=== PATIENT | male | born 1990 | race African-American/Black ===

== ENCOUNTER 2021-03-07 10:00 | Outpatient (CLI) | payer OTHER ==
--- NOTE | 2021-03-07 15:32 | MRI Report ---
PROCEDURE: Hip LT W/O INDICATIONS: LT ANTERIOR GROIN/HIP PAIN TECHNIQUE: Noncontrast coronal T1 spin echo and STIR through the bony pelvis. Coronal and axial T2 fast spin ec ho with fat saturation, sagittal T1 spin echo, and oblique axial T2 fast spin echo with fat saturatio n through the hip. COMPARISON: None. FINDINGS: Image quality: Excellent. Bones and joints: Bone marrow of the pelvic ring and proximal femurs show normal signal throughout. Prominence of left femoral head neck junction superiorly is seen, which can be seen associated with c am-type femoral acetabular impingement. No intraosseous lesions or fractures. No avascular necrosis of the femoral heads. The visualized lower lumbar spine appears normally aligned. Tendons: Mild distal left gluteus medius and minimus tendinosis is seen at their insertion on greater trochanter. The iliopsoas tendon appears intact, without adjacent bursal fluid collections. The or igin of the hamstring tendon is intact at the ischial tuberosity. Labrum and cartilage: Subtle signal abnormality involving superior anterior left hip labrum is seen, which may represent very subtle focal labral tear. The alpha angle of the femur is within normal limi ts at less than 55 degrees. Soft tissues: Visualized muscles demonstrate normal bulk and internal signal. The proximal sciatic neurovascular bundle appears normal adjacent to the hamstring tendons. No free pelvic fluid. Bladde r wall thickness is normal. Genitourinary structures and bowel loops appear normal where visualized. IMPRESSION: 1. Slight prominence of left superior femoral head neck junction which can be seen associated with ca m-type femoral acetabular impingement. No marrow edema. No fracture or dislocation. No evidence of av ascular necrosis of femoral head. 2. Mild distal left gluteus medius and minimus tendinosis. No other muscle or tendon signal abnormali ty. 3. Finding is concerning for very subtle superior anterior left hip labral tear. Reviewed by: Jose Alberto Mendoza MD on 03/07/2021 3:31 PM PST Approved by: Jose Alberto Mendoza MD on 03/07/2021 3:31 PM PST Station ID: [id number]
== END 2021-03-07 10:01 | disposition home or self-care (01) ==
LOC: DI 10:00
DX: R10.31 Right lower quadrant pain (principal); R93.6 Abnormal findings on diagnostic imaging of limbs

== ENCOUNTER 2021-04-03 09:10 | Outpatient (CLI) | payer OTHER ==
--- NOTE | 2021-04-03 11:34 | XRAY Report ---
PROCEDURE: Arthrogram Needle Placement INDICATIONS: PAIN IN LEFT HIP CONTRAST: CONTRAST: conray, gadavi FLUOROSCOPY TIME: FLUORO TIME: 0.3 and NUMBER IMAGES: 3 TECHNIQUE: The indications, alternatives, benefits, risks, and complications of the procedure were explained to the patient. Written informed consent was obtained and placed in the chart. The hip was examined fl uoroscopically with the legs fixed in slight internal rotation, and a site for needle placement chose n for entry into the hip joint from an anterior approach. Care was taken to locate the common femora l artery and vein beforehand. The skin was prepped and draped in the usual fashion, and 1% Lidocaine infiltrated from skin down to joint capsule. A spinal needle was inserted into the joint, and a sma ll amount of iodinated contrast media injected to confirm intra-articular placement of the needle tip . This was followed by approximately 10 mL dilute solution of a gadolinium containing MR contrast ag ent. The needle was removed and a dressing was applied. The patient was given postprocedural instructions and sent to the MR suite for imaging. FINDINGS: A single fluoroscopic spot image demonstrates intra-articular location of injected iodinated contrast . IMPRESSION: Successful fluoroscopically guided administration of dilute Gadolinium solution into the hip joint fo r MR arthrogram. Reviewed by: Sina Xiao MD on 04/03/2021 11:33 AM PST Approved by: Sina Xiao MD on 04/03/2021 11:33 AM PST Station ID: [id number]
--- NOTE | 2021-04-03 11:56 | MRI Report ---
PROCEDURE: Arthrogram Hip LT INDICATIONS: PAIN IN LEFT HIP CONTRAST: Gadavist TECHNIQUE: After the administration of 10 mL of dilute intra-articular Gadolinium contrast, coronal STIR of the bony pelvis; coronal and oblique axial T1 spin echo with fat saturation, axial T2 fast spin echo with fat saturation, sagittal T1 spin echo with and without fat saturation of the involved hip. COMPARISON: March 07, 2021 Findings: MUSCULATURE: No edema in the musculature of the imaged hip region. LABRUM: Tear of the anterior labrum (i.E. 1001-13), extending inferiorly. HAMSTRING ATTACHMENT: No significant abnormality. BONES/JOINTS: No fractures or dislocations are identified. No evidence of irregularity or fragmentat ion of the femoral heads to suggest avascular necrosis. Redemonstrated bony protuberance at the femor al head/neck junction. The bone marrow signal intensity is normal for the patient's age. PELVIC STRUCTURES: The lower pelvic intraperitoneal structures are unremarkable. Impression: 1.Anterior labral tear, which extends inferiorly. Reviewed by: Pedro Miguel MD on 04/03/2021 11:55 AM PST Approved by: Pedro Miguel MD on 04/03/2021 11:55 AM PST Station ID: [id number]
== END 2021-04-03 09:11 | disposition home or self-care (01) ==
LOC: DI 09:10
DX: S73.192A Other sprain of left hip, initial encounter (principal)
CPT/HCPCS: 27093; 73722; 77002; A9585; Q9961

== ENCOUNTER 2021-04-18 05:03 | Emergency (ER) | payer OTHER ==
--- NOTE | 2021-04-18 05:37 | ED Physician Documentation ---
History of Present Illness - Stated complaint Stated Complaint: COLD SYMPTOMS - Chief complaint Chief Complaint: General - History obtained from History obtained from: Patient - Additonal information Additional information: 31yM, previously healthy p/w congestion, rhinorrhea, sore throat X 1-2 days and request for covid test. covid vaccinated. +sick contacts (kids). denies soa, cp, n/v/d, fever. Review of Systems Ten Systems: 10 systems reviewed and negative Nose: reports: Rhinorrhea / runny nose, Congestion Throat: reports: Sore throat PD PAST MEDICAL HISTORY - Past Medical History Past Medical History: No Musculoskeletal: Chronic back pain, Other Other Past Medical History: hip and LBP - Past Surgical History Past Surgical History: No - Present Medications Home Medications: Ambulatory Orders Medication Instructions Recorded Confirmed No Known Home Medications 04/18/21 04/18/21 - Allergies Allergies/Adverse Reactions: Allergies Allergy/AdvReac Type Severity Reaction Status Date / Time No Known Drug Allergies Allergy Verified 04/18/21 05:18 - Social History Does the pt smoke?: No Smoking Status: Never smoker Does the pt drink ETOH?: No Does the pt have substance abuse?: No - Immunizations Immunizations are current?: Yes PD ED PE NORMAL - Vitals Vital signs reviewed: Yes - General General: Alert and oriented X 3, No acute distress, Well developed/nourished - HEENT HEENT: Atraumatic, PERRL, EOMI, Moist mucous membranes, Pharynx benign - Neck Neck: Supple, no meningeal sign - Cardiac Cardiac: RRR - Respiratory Respiratory: No respiratory distress, Clear bilaterally - Abdomen Abdomen: Non tender, Non distended - Derm Derm: Normal color, Warm and dry - Extremities Extremities: No deformity - Neuro Neuro: Alert and oriented X 3, No motor deficit, No sensory deficit - Psych Psych: Normal mood, Normal affect Results - Vitals Vitals: Vital Signs - 24 hr 04/18/21 04/18/21 05:18 05:44 Temperature 36.3 C L 36.3 C L Heart Rate 67 67 Respiratory 17 16 Rate Blood Pressure 127/89 H 127/79 O2 Saturation 100 99 Oxygen O2 Source Room air PD MEDICAL DECISION MAKING - ED course ED course: 31yM p/w mild viral URI symptoms and request for covid test. symptomatic care di scussed. return precautions given. [place] advised to stay home and quarantine while symptomatic. Departure - Departure Disposition: 01 Home, Self Care Clinical Impression: Viral URI Condition: Good Instructions: ED Viral Syndrome Comments: You were seen for a viral upper respiratory infection. A covid test was sent and will result by morning time. [place] and return to the ED if he has any new or worsening symptoms or you have other concerns. Discharge Date/Time: 04/18/21 05:44
[2021-04-18 05:45] VITALS: BP 127/79
[2021-04-18 07:06] LABS: CORONAVIRUS 229E-RESP PCR NOT DETECTED; CORONAVIRUS HKU1-RESP PCR NOT DETECTED; CORONAVIRUS NL63-RESP PCR NOT DETECTED; CORONAVIRUS OC43-RESP PCR NOT DETECTED
[2021-04-18 07:07] LABS: B. PARAPERTUSSIS- RESP PCR PAN NOT DETECTED; B. PERTUSSIS- RESP PCR PANEL NOT DETECTED; C. PNEUMONIAE- RESP PCR PANEL NOT DETECTED; HUMAN METAPNEUMOVIRUS NOT DETECTED; INFLUENZA A- RESP PCR PANEL NOT DETECTED; INFLUENZA B - RESP PCR PANEL NOT DETECTED; M. PNEUMONIAE- RESP PCR PANEL NOT DETECTED; PARAINFLUENZA VIRUS 1 NOT DETECTED; PARAINFLUENZA VIRUS 2 NOT DETECTED; PARAINFLUENZA VIRUS 3 NOT DETECTED; PARAINFLUENZA VIRUS 4 NOT DETECTED; RHINOVIRUS/ENTEROVIRUS NOT DETECTED; RSV- RESP PCR PANEL NOT DETECTED; SARS-CoV-2 -RESP PCR PANEL DETECTED
== END 2021-04-18 05:44 | disposition home or self-care (01) ==
LOC: ED 05:03
DX: U07.1 COVID-19 (principal); J06.9 Acute upper respiratory infection, unspecified
CPT/HCPCS: 0202U; 99281; 99283

== ENCOUNTER 2021-08-29 15:33 | Outpatient (CLI) | payer OTHER ==
--- NOTE | 2021-08-29 15:58 | SLEEP CARE CONSULTATION ---
Information from patient questionnaire entered by Talita Israel MA. I have reviewed and concur with the information entered by Talita Israel MA. This document represents the service I personally performed and the decisions made by , Cherise Jain ARNP. History of Present Illness Service Date and Time: 08/29/2021 1520 Reason for Visit: New patient Chief Complaint: reports: Insomnia, Unrefreshed sleep, Snoring, Excessive daytime sleepiness, Observed pauses in breathing, Frequent awakenings at night, Other (dry throat, especially at night; choking, gasping for air) Date of Onset: 6-9 months Usual bedtime: 10 PM to 5 AM; depends on work and schoolwork Time it takes to fall asleep: 45 minutes to 2 hours Snores at night: Yes Observed to quit breathing while asleep: Yes Sleeps alone due to snoring: Yes Number of times waking at night: 3-5 times Reasons for waking at night: reports: Choking, Snoring, Gasping for air, Pain, Bathroom, Other (unknown reason) Toss, Turn, or Twitch while sleeping: Yes Recalls having dreams: Yes (sometimes, barely) Usually gets out of bed at: 4-6 AM; Feels refreshed in the morning: No Morning headache: Yes (sometimes (1-2 times a week), resolves after shower) Sleepy or fatigued during the day: Yes Ever fallen asleep while driving: No (but do feel sleepy at times) Takes day naps: Yes (2 x a week, 2 hrs but usually not because it is interrupted) Dreams during day naps: No Prior sleep studies: No Additional HPI information: I had the pleasure of seeing BRITTANY TITUS today regarding the possibility of him having a sleep disorder. His current complaints are excessive daytime sleepiness, snoring very loud, observed pauses in breathing, insomnia and unrefreshed sleep. He has been told that he snores very loudly. He will wake up gasping for air at night and drinks water for his very dry throat at night. He states he wake up frequently during the night from the gasping or choking but he is able to go back to sleep. 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 Patient is and lives in [place]. Have you smoked in the past 12 months: No Alcohol use: Yes Alcohol amount and frequency: 1 drink about 1 time a month Caffeine use: Yes Caffeine amount and frequency: 2 x a week Family History Family history of sleep disordered breathing: No Family Hx Sleep Apnea: Mother: Snoring (not sure), Father: Snoring Allergies and Home Medications Drug allergies reviewed: Yes (NKDA) Home medication list reviewed: Yes Allergy and home medication list: Allergies No Known Drug Allergies Allergy (Verified 04/18/21 05:18) Medications: Ibuprofen HCTZ for hypertension, will start after does sleep study Review of Systems Weight gain over past 5 years: 11 lbs Cardiovascular: reports: high blood pressure Gastrointestinal: reports: heartburn Urinary: reports: incontinence Neurological: denies: head trauma Ear/Nose/Throat: reports: dry mouth/throat Endocrine: reports: excessive thirst, increased urination Musculoskeletal: reports: back pain Physical Exam Vital signs obtained and entered by: BROOK FRASER Blood Pressure: 120/79 (RESP 16, PULSE 82, RIGHT) Cuff size: wrist Heart Rate: 83 O2 Saturation: 99 (PAPER MASK) Height: 5 ft 8 in Weight: 167 lb (UNIFORM AND BOOTS) Body Mass Index: 25.4 BMI Classification: Overweight Neck circumference: 14 (INCHES) Mouth and throat: narrow oropharynx Soft palate: long Hard palate: normal Uvula: normal Uvula visualization: 0% Mallampati Class IV Tongue: enlarged in size with teeth haney on lateral edges Tonsils: small Neck: normal w/o lymphadenopathy or thyromegaly Heart: regular rate and rhythm Lungs: clear bilaterally Impression and Plan 1. Suspected Obstructive Sleep Apnea-Hypopnea Syndrome, as suggested by a history of loud and irregular snoring, observed cessation of breath while asleep, gasping or choking in sleep, morning headache, frequent awakening during the night, unrefreshed sleep, and excessive daytime sleepiness. Narrow oropharynx and obesity are common predisposing factors for obstructive sleep apnea-hypopnea syndrome. I recommend proceeding to polysomnography to confirm the diagnosis and to assess severity. If the patient has significant sleep disordered breathing, a manual CPAP titration study will also be performed to find the optimal treatment pressure. I informed the patient of what the sleep studies involve and after some discussion, obtained agreement to proceed. The pathophysiology of obstructive sleep apnea-hypopnea syndrome was discussed with the patient and health risks of cardiovascular and cerebrovascular disease if not treated. 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 Patient agreed to plan. * Schedule polysomnography * Avoid long distance driving or driving when feeling sleepy. * Avoid alcohol, sedative and muscle relaxant around bedtime. * Attempt to lose weight. * Review instructions provided by trained office staff on how to prepare for the sleep study. * Return for follow-up after sleep study completed. Counseling Topics: Weight loss health impact Visit Type: In Office Time Spent with Patient (minutes): 34 Provider Statement: I spent 100% of the Face to Face Visit with the patient with greater than 50% spent counseling the patient and coordination of care.
[2021-08-29 15:59] VITALS: BP 120/79
== END 2021-08-29 15:34 | disposition home or self-care (01) ==
LOC: SC 15:33
PROVIDERS: ATTEND Nurse Practitioner Family
DX: R06.83 Snoring (principal); R06.81 Apnea, not elsewhere classified; G47.8 Other sleep disorders; R51.9 Headache, unspecified; G47.10 Hypersomnia, unspecified; E66.3 Overweight; Z68.25 Body mass index [BMI] 25.0-25.9, adult
CPT/HCPCS: 99203; 99212

== ENCOUNTER 2021-09-20 09:58 | Outpatient (CLI) | payer OTHER ==
[2021-09-20 10:42] VITALS: BP 122/75
--- NOTE | 2021-09-20 10:42 | SLEEP CARE CONSULTATION ---
Information from patient questionnaire entered by Talita Israel MA. I have reviewed and concur with the information entered by Talita Israel MA. This document represents the service I personally performed and the decisions made by , Cherise Jain ARNP. History of Present Illness Service Date and Time: 09/20/2021 0958 Initial [place] Sleepiness Scale score: 3 (08/2021) Current [place] Sleepiness Scale score: 9 () Additional HPI information: BRITTANY TITUS returns for follow up and results of the recently performed polysomnography. I explained the pathophysiology behind obstructive sleep apnea. We then spent quite a bit of time discussing different treatment options. For mild obstructive sleep apnea, surgery and oral appliance are alternatives to nasal CPAP therapy but in moderate or severe cases, nasal CPAP is the most effective and reliable treatment. Because apnea is primarily in supine position, then positional management therapy could be effective. Methods discussed such as positioning with pillows to prevent supine sleep. I reviewed the impact of weight changes on sleep apnea and strongly recommended losing weight. After some discussion, the patient opted to go with the nasal CPAP therapy. Nasal autoCPAP set at 4-15 cmH20 will be ordered with rationale explained. A manual titration study will be ordered if unable to find optimal pressure with office adjustments. I explained how CPAP machine works and what to expect when using the machine. Using CPAP every night in order to get used to it was emphasized. Patient advised to put CPAP mask on before getting into bed so as not to fall asleep without CPAP. To assist acclimation to CPAP use, it could also be used for a short time during day while reading or watching TV. The patient was instructed to call the CPAP supplier to discuss any mechanical problem that may occur. If the mask given is uncomfortable or is difficult to keep on through the night even with adjustment, contact the CPAP supplier as many will replace with anothe r mask style if notified before 30 days. If snoring or perceives is not getting enough air or too much air from the machine, notify this office. Patient counseled not drink alcohol less than 4 hours before bedtime as it can increase snoring and apnea. Patient was cautioned about risks of drowsy driving until sleepiness symptoms resolve. Sleep Study - Results Type of Sleep Study: Polysomnography (F/U POLY, 09/04/2021 [facility], POS,) Prior sleep studies: No Polysomnography/Home Sleep Study results: IMPRESSION: The quality of the study is good. The patient had normal sleep efficiency. The sleep architecture was relatively normal considering the first-night effect. Respiratory monitoring showed mild obstructive sleep apnea-hypopnea (AHI = 10.6) associated with frequent oxyhemoglobin desaturation and mild hypoxia (nikhil oxygen saturation of 83%). The respiratory events occurred mainly during REM sleep (supine AHI = 11.7; non-supine = 8.05). Snore was loud in intensity. There was no significant periodic leg movement of sleep. Cardiac rhythm was normal sinus rhythm without significant arrhythmia. No abnormal behavior (parasomnia) observed during the night. Allergies and Home Medications Home medication list reviewed: Yes (HCTZ for blood pressure) Allergy and home medication list: Allergies No Known Drug Allergies Allergy (Verified 04/18/21 05:18) Review of Systems Review of systems same as previous: No (hypertension) Physical Exam Vital signs obtained and entered by: BROOK FRASER Blood Pressure: 122/75 (RESP 18, PULSE 80, LEFT) Cuff size: wrist Heart Rate: 76 O2 Saturation: 98 (PAPER MASK) Height: 5 ft 8 in Weight: 172 lb (UNIFORM AND BOOTS) Body Mass Index: 26.1 BMI Classification: Overweight Impression and Plan 1. Obstructive Sleep Apnea-Hypopnea Syndrome, mild, with lowest oxygen saturation of 83%. Obviously this is the cause of the patients symptoms of unrefreshed sleep, and excessive daytime sleepiness. Positive pressure therapy could benefit hypertension. As mentioned above, the patient will be started on nasal autoCPAP therapy with pressure set at 4-15 cmH2O. Compliance guidelines also reviewed. A copy of compliance guidelines will be given for reference at check out. Because the apnea is more severe supine, I instructed to avoid sleeping supine using pillow positioning until able to start CPAP use. 2. Hypoxemia, mild, with a nikhil oxygen saturation of 83% and with 1.2 minutes spent under 89%. His baseline oxygen saturation was normal with an average oxygen saturation of 95%. * Nasal auto CPAP therapy, pressure at 4-15 cm H2O. * Attempt to lose weight. * Avoid alcohol consumption near bedtime. * Avoid supine sleep until using CPAP. * The patient is again cautioned about driving until sleepiness completely resolves. * Return one month after CPAP obtained. I will assess response to therapy and compliance at that time. Counseling Topics: Weight loss health impact Visit Type: In Office Time Spent with Patient (minutes): 20 Provider Statement: I spent 100% of the Face to Face Visit with the patient with greater than 50% spent counseling the patient and coordination of care.
== END 2021-09-20 09:59 | disposition home or self-care (01) ==
LOC: SC 09:58
PROVIDERS: ATTEND Nurse Practitioner Family
DX: G47.33 Obstructive sleep apnea (adult) (pediatric) (principal); R09.02 Hypoxemia; E66.3 Overweight; Z68.26 Body mass index [BMI] 26.0-26.9, adult
CPT/HCPCS: 99212; 99213

== ENCOUNTER 2021-12-04 11:58 | Emergency (ER) | payer OTHER ==
--- NOTE | 2021-12-04 12:26 | ED Physician Documentation ---
PD HPI CHEST PAIN - Stated complaint Stated Complaint: CHEST PX - Chief complaint Chief Complaint: Cardiac - History obtained from History obtained from: Patient - History of Present Illness Timing - onset: Today Timing - onset during: Light activity (Patient noted onset of left anterior pectoral chest pain worse with movement and deep breathing while doing light activity at work. No direct impact or injury. [facility] [place] [facility] and was referred to the ER.) Timing - details: Abrupt onset, Still present Quality: Aching, Sharp, Pain Location: Substernal, Left chest Improved by: No: Rest Worsened by: No: Exertion Associated symptoms: Nausea. No: Shortness of air, Feeling faint / dizzy, General Weakness, Palpitations Similar symptoms before: Has not had sx before Recently seen: Not recently seen Review of Systems Ten Systems: 10 systems reviewed and negative Constitutional: denies: Fever Cardiac: reports: Chest pain / pressure. denies: Palpitations, Pedal edema, Calf pain Respiratory: denies: Dyspnea GI: denies: Abdominal Pain, Vomiting, Diarrhea, Bloody / black stool PD PAST MEDICAL HISTORY - Past Medical History Cardiovascular: Hypertension Respiratory: None Neuro: None Endocrine/Autoimmune: None Musculoskeletal: Chronic back pain, Other - Past Surgical History Past Surgical History: No - Present Medications Home Medications: Ambulatory Orders Medication Instructions Recorded Confirmed Ibuprofen [Motrin] 600 mg PO TID PRN #25 tab 12/04/21 - Allergies Allergies/Adverse Reactions: Allergies Allergy/AdvReac Type Severity Reaction Status Date / Time No Known Drug Allergies Allergy Verified 12/04/21 12:18 - Social History Does the pt smoke?: No Smoking Status: Never smoker Does the pt drink ETOH?: No Does the pt have substance abuse?: No - Immunizations Immunizations are current?: Yes PD ED PE NORMAL - Vitals Vital signs reviewed: Yes - General General: Alert and oriented X 3, No acute distress, Well developed/nourished - HEENT HEENT: Moist mucous membranes, Pharynx benign - Neck Neck: Supple, no meningeal sign, No adenopathy - Cardiac Cardiac: RRR, No murmur - Abdomen Abdomen: Soft, Non tender - Male Male : Deferred - Derm Derm: Normal color, Warm and dry - Extremities Extremities: No edema, No calf tenderness / cord - Neuro Neuro: Alert and oriented X 3, No motor deficit, Normal speech Results - Vitals Vitals: Oxygen O2 Source Room air - EKG (time done) 1210 Rate: Rate (enter#) (80) Rhythm: NSR [place]: Normal Intervals: Normal [place] QRS: Normal Ischemia: Normal ST segments, ST elevation c/w repol. No: ST elevation c/w ischemia, ST depression Compare to prior EKG: Old EKG unavailable - Labs Labs: Laboratory Tests 12/04/21 12/04/21 12/04/21 12:49 12:49 12:49 WBC 3.6 L RBC 5.84 Hgb 12.8 L Hct 39.8 L MCV 68.2 L MCH 21.9 L MCHC 32.2 RDW 15.0 Plt Count 155 MPV 10.1 Neut # (Auto) 1.8 Lymph # (Auto) 1.3 L [place] # (Auto) 0.4 Eos # (Auto) 0.0 Baso # (Auto) 0.0 Absolute Nucleated RBC 0.00 Nucleated RBC % 0.0 Manual Slide Review Indicated Sodium 136 Potassium 3.6 Chloride 99 L Carbon Dioxide 29 Anion Gap 8.0 BUN 13 Creatinine 1.0 Estimated GFR (MDRD) 106 Glucose 102 H Calcium 9.7 Total Bilirubin 0.8 AST 18 ALT 16 Alkaline Phosphatase 45 Troponin I High Sens 2.8 B-Natriuretic Peptide Total Protein 6.8 Albumin 4.6 Globulin 2.2 Albumin/Globulin Ratio 2.1 Lipase 46 12/04/21 12:49 WBC RBC Hgb Hct MCV MCH MCHC RDW Plt Count MPV Neut # (Auto) Lymph # (Auto) [place] # (Auto) Eos # (Auto) Baso # (Auto) Absolute Nucleated RBC Nucleated RBC % Manual Slide Review Sodium Potassium Chloride Carbon Dioxide Anion Gap BUN Creatinine Estimated GFR (MDRD) Glucose Calcium Total Bilirubin AST ALT Alkaline Phosphatase Troponin I High Sens B-Natriuretic Peptide 7 Total Protein Albumin Globulin Albumin/Globulin Ratio Lipase - Rads (name of study) chest xray Radiology: Prelim report reviewed (no acute process.), See rad report PD MEDICAL DECISION MAKING - ED course Complexity details: reviewed results, considered differential, d/w patient Departure - Departure Disposition: 01 Home, Self Care Clinical Impression: Chest pain Qualifiers: Chest pain type: unspecified Qualified Code(s): R07.9 - Chest pain, unspecified Condition: Stable Record reviewed to determine appropriate education?: Yes Instructions: ED Strain Chest Wall Follow-Up: ALEJANDRO Doty [Provider Group] Prescriptions: Ibuprofen [Motrin] 600 mg PO TID PRN #25 tab PRN Reason: Pain Comments: Your EKG, chest x-ray, blood tests are normal without any signs of heart attack, heart muscle injury, heart failure, pneumonia, collapsed lung, fluid around the lung or infection. These are the more serious conditions that are good to eliminate. At this point I would presume a muscular cause for the pain in the chest. Light duty only for 2 to 3 days presuming muscular pain. Ibuprofen 3 times daily with food for the next 5 to 7 days. Follow-up with your primary care if not improved over the next 2 to 3 days. Recheck if other symptoms develop such as cough fever increasing pain or other concerns. Forms: Activity restrictions Discharge Date/Time: 12/04/21 15:08
[2021-12-04] MEDS ORDERED: ACETAMINOPHEN 325 MG TABLET PO STA (12:41)
[2021-12-04] MEDS ORDERED: IBUPROFEN 600 MG TABLET PO STA (12:41)
[2021-12-04 12:54] LABS: BASOPHILS % (AUTO) 0.3 %; EOSINOPHILS % (AUTO) 0.3 %; HCT - HEMATOCRIT 39.8 % (42.0-52.0); HGB - HEMOGLOBIN 12.8 g/dL (14.0-18.0); LYMPHOCYTES # (AUTO) 1.3 10^3/uL (1.5-3.5); LYMPHOCYTES % (AUTO) 36.2 %; MEAN CORPUSCULAR HEMOGLOBIN 21.9 pg (27.0-31.0); MEAN CORPUSCULAR HGB CONC 32.2 g/dL (32.0-36.0); MEAN CORPUSCULAR VOLUME 68.2 fL (80.0-94.0); MEAN PLATELET VOLUME 10.1 fL (7.4-11.4); MONOCYTES # (AUTO) 0.4 10^3/uL (0.0-1.0); MONOCYTES % (AUTO) 12.2 %; NEUTROPHILS # (AUTO) 1.8 10^3/uL (1.5-6.6); NEUTROPHILS % (AUTO) 50.7 %; PLT - PLATELET COUNT 155 10^3/uL (130-450); RED BLOOD COUNT 5.84 10^6/uL (4.70-6.10); WHITE BLOOD COUNT 3.6 x10^3/uL (4.8-10.8)
--- NOTE | 2021-12-04 12:55 | XRAY Report ---
PROCEDURE: Chest 1 View X-Ray INDICATIONS: Chest Pain TECHNIQUE: One view of the chest was acquired. COMPARISON: None. FINDINGS: Surgical changes and devices: None. Lungs and pleura: No pleural effusions or pneumothorax. Lungs are clear. Mediastinum: Mediastinal contours appear normal. Heart size is normal. Bones and chest wall: No suspicious bony lesions. Overlying soft tissues appear unremarkable. IMPRESSION: No acute cardiopulmonary process demonstrated radiographically. Reviewed by: John Lea MD on 12/04/2021 12:54 PM PDT Approved by: John Lea MD on 12/04/2021 12:54 PM PDT Station ID: [id number]
[2021-12-04 12:58] LABS: SLIDE REVIEW? Indicated
[2021-12-04 13:11] LABS: ALBUMIN 4.6 g/dL (3.2-5.5); ALBUMIN/GLOBULIN RATIO 2.1 (1.0-2.2); BILIRUBIN,TOTAL 0.8 mg/dL (0.2-1.0); CALCIUM 9.7 mg/dL (8.5-10.3); POTASSIUM 3.6 mmol/L (3.5-5.0); TOTAL PROTEIN 6.8 g/dL (6.7-8.2)
[2021-12-04 15:05] VITALS: BP 127/91
== END 2021-12-04 15:08 | disposition home or self-care (01) ==
LOC: ED 11:58
DX: R07.9 Chest pain, unspecified (principal)
CPT/HCPCS: 36415; 71045; 80053; 83690; 83880; 84484; 85025; 93005; 99284; A9270